=== PATIENT | male | born 1950 | race Caucasian/White ===

== ENCOUNTER 2019-05-22 15:05 | Outpatient (CLI) | payer MEDICARE, MEDICAID, SELFPAY ==
[2019-05-22 18:16] LABS: Alanine Aminotransferase 19 U/L (0-41); Albumin Level 4.9 g/dL (3.5-5.2); Alkaline Phosphatase 80 IU/L (40-130); Anion Gap 19.2 (5-19); Aspartate Amino Transferase 34 U/L (0-40); Blood Urea Nitrogen 21 mg/dL (8-23); Calcium 9.7 mg/dL (8.5-10.5); Carbon Dioxide 27 mmol/L (22-29); Chloride 98 mmol/L (98-107); Globulin 2.1 g/dL (1.3-4.6); Glomerular Filtration Rate 50.4 mL/min (90-130); Glucose 98 mg/dL (65-115); Lactate Dehydrogenase 204 U/L (135-225); Osmolality Calculated 287 mOsm/kg (285-295); Potassium 4.2 mmol/L (3.5-5.1); Sodium 140 mmol/L (136-145); Total Bilirubin 0.5 mg/dL (0.15-1.2)
[2019-05-22 18:24] LABS: Basophils # 0.1 10^3/uL (0.0-0.1); Basophils % 0.6 %; Eosinophils # 0.2 10^3/uL (0.0-0.8); Hematocrit 46.9 % (42.0-52.0); Hemoglobin 15.7 g/dL (11.7-16.6); Lymphocytes # 1.5 10^3/uL (0.8-4.8); Lymphocytes % 18.6 %; Mean Corpuscular HGB Conc 33.5 g/dL (30.0-36.0); Mean Corpuscular Hemoglobin 32.2 pg (28.0-34.0); Mean Corpuscular Volume 96.1 fL (80-94); Mean Platelet Volume 10.5 fL (7.4-10.4); Monocytes # 0.4 10^3/uL (0.2-0.9); Monocytes % 4.8 %; Neutrophils % 73.9 %; Nucleated Red Blood Cells % 0 %; Platelet Count 180 10^3/cmm (130-400); Red Blood Count 4.88 10^6/uL (4.1-5.3); Red Cell Distribution Width 14.5 % (12.1-15.1); White Blood Count 8.2 10^3/uL (4.0-10.0)
[2019-05-28 16:47] LABS: P210 BCR ALB1 Not Detected; Prior Results See Report
== END 2019-05-22 15:06 | disposition home or self-care (01) ==
LOC: ONCMED 05-23 07:23
PROVIDERS: Visit Provider Internal Medicine Medical Oncology
DX: C92.10 Chronic myeloid leukemia, BCR/ABL-positive, not having achieved remission (principal)
CPT/HCPCS: 36415; 80053; 81206; 83615; 85025

== ENCOUNTER 2019-09-28 14:09 | Outpatient (CLI) | payer MEDICARE, MEDICAID, SELFPAY ==
[2019-09-28 14:40] LABS: Basophils % 0.6 %; Eosinophils # 0.2 10^3/uL (0.0-0.8); Eosinophils % 2.7 %; Hematocrit 49.2 % (42.0-52.0); Hemoglobin 16.4 g/dL (11.7-16.6); Lymphocytes # 1.4 10^3/uL (0.8-4.8); Lymphocytes % 20.1 %; Mean Corpuscular HGB Conc 33.3 g/dL (30.0-36.0); Mean Corpuscular Hemoglobin 32.3 pg (28.0-34.0); Mean Corpuscular Volume 96.9 fL (80-94); Mean Platelet Volume 9.6 fL (7.4-10.4); Monocytes # 0.4 10^3/uL (0.2-0.9); Monocytes % 5.4 %; Neutrophils # 4.91 10^3/uL (1.8-7.7); Neutrophils % 71.1 %; Nucleated Red Blood Cells % 0 %; Platelet Count 171 10^3/cmm (130-400); Red Blood Count 5.08 10^6/uL (4.1-5.3); Red Cell Distribution Width 14.2 % (12.1-15.1); White Blood Count 6.9 10^3/uL (4.0-10.0)
[2019-09-28 14:58] LABS: Alanine Aminotransferase 16 U/L (0-41); Albumin Level 4.8 g/dL (3.5-5.2); Alkaline Phosphatase 72 IU/L (40-130); Aspartate Amino Transferase 22 U/L (0-40); Blood Urea Nitrogen 20 mg/dL (8-23); Calcium 8.9 mg/dL (8.5-10.5); Carbon Dioxide 24 mmol/L (22-29); Chloride 100 mmol/L (98-107); Globulin 2.6 g/dL (1.3-4.6); Glomerular Filtration Rate 46.4 mL/min (90-130); Glucose 107 mg/dL (65-115); Osmolality Calculated 279 mOsm/kg (285-295); Sodium 136 mmol/L (136-145); Total Bilirubin 0.6 mg/dL (0.15-1.2); Total Protein 7.4 g/dL (6.6-8.7)
[2019-10-05 13:34] LABS: BCR ABL1 (IS) 0.028 %; P210 BCR ALB1 Detected; Prior Results See Report
== END 2019-09-28 14:10 | disposition home or self-care (01) ==
LOC: ONCMED 14:12
PROVIDERS: Visit Provider Internal Medicine Medical Oncology
DX: C92.12 Chronic myeloid leukemia, BCR/ABL-positive, in relapse (principal)
CPT/HCPCS: 80053; 81206; 85025

== ENCOUNTER 2019-10-02 08:24 | Outpatient (CLI) | payer MEDICARE, MEDICAID, SELFPAY ==
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
== END 2019-10-02 08:25 | disposition home or self-care (01) ==
LOC: ONCMED 08:27
PROVIDERS: Visit Provider Internal Medicine Medical Oncology
DX: C91.12 Chronic lymphocytic leukemia of B-cell type in relapse (principal); M50.30 Other cervical disc degeneration, unspecified cervical region; N40.0 Benign prostatic hyperplasia without lower urinary tract symptoms; J90 Pleural effusion, not elsewhere classified
CPT/HCPCS: 99214

== ENCOUNTER 2020-01-04 10:51 | Outpatient (CLI) | payer MEDICARE, MEDICAID, SELFPAY ==
[2020-01-04 11:54] LABS: Basophils # 0.1 10^3/uL (0.0-0.1); Basophils % 0.6 %; Eosinophils # 0.5 10^3/uL (0.0-0.8); Eosinophils % 5.8 %; Hematocrit 48.1 % (42.0-52.0); Hemoglobin 16.5 g/dL (11.7-16.6); Lymphocytes # 1.7 10^3/uL (0.8-4.8); Lymphocytes % 21.3 %; Mean Corpuscular HGB Conc 34.3 g/dL (30.0-36.0); Mean Corpuscular Hemoglobin 33.3 pg (28.0-34.0); Mean Corpuscular Volume 97.2 fL (80-94); Mean Platelet Volume 9.3 fL (7.4-10.4); Monocytes # 0.4 10^3/uL (0.2-0.9); Monocytes % 4.6 %; Neutrophils # 5.24 10^3/uL (1.8-7.7); Neutrophils % 67.3 %; Nucleated Red Blood Cells % 0 %; Platelet Count 123 10^3/cmm (130-400); Red Blood Count 4.95 10^6/uL (4.1-5.3); Red Cell Distribution Width 13.5 % (12.1-15.1); White Blood Count 7.8 10^3/uL (4.0-10.0)
[2020-01-04 12:22] LABS: Alanine Aminotransferase 17 U/L (0-41); Albumin Level 4.3 g/dL (3.5-5.2); Alkaline Phosphatase 80 IU/L (40-130); Anion Gap 13.3 (5-19); Aspartate Amino Transferase 20 U/L (0-40); Blood Urea Nitrogen 22 mg/dL (8-23); Calcium 9.1 mg/dL (8.5-10.5); Carbon Dioxide 27 mmol/L (22-29); Chloride 103 mmol/L (98-107); Globulin 2.3 g/dL (1.3-4.6); Glomerular Filtration Rate 66.4 mL/min (90-130); Glucose 102 mg/dL (65-115); Lactate Dehydrogenase 160 U/L (135-225); Osmolality Calculated 292 mOsm/kg (285-295); Potassium 4.3 mmol/L (3.5-5.1); Sodium 139 mmol/L (136-145); Total Bilirubin 0.4 mg/dL (0.15-1.2); Total Protein 6.6 g/dL (6.6-8.7)
[2020-01-08 17:08] LABS: BCR ABL1 (IS) 0.048 (0.000); P190 BCR ALB1 NOT DETECTED; P210 BCR ALB1 DETECTED; Prior Results N; Source VEN
== END 2020-01-04 10:52 | disposition home or self-care (01) ==
LOC: ONCMED 10:55
PROVIDERS: Visit Provider Internal Medicine Medical Oncology
DX: C92.12 Chronic myeloid leukemia, BCR/ABL-positive, in relapse (principal)
CPT/HCPCS: 36415; 80053; 81206; 83615; 85025

== ENCOUNTER 2020-03-25 08:34 | Outpatient (CLI) | payer MEDICARE, MEDICAID, SELFPAY ==
[2020-03-25 09:07] LABS: Basophils % 0.7 %; Eosinophils # 0.3 10^3/uL (0.0-0.8); Eosinophils % 5.8 %; Hemoglobin 17.2 g/dL (11.7-16.6); Lymphocytes # 1.2 10^3/uL (0.8-4.8); Lymphocytes % 20.3 %; Mean Corpuscular HGB Conc 33.7 g/dL (30.0-36.0); Mean Corpuscular Hemoglobin 32.3 pg (28.0-34.0); Mean Corpuscular Volume 95.9 fL (80-94); Mean Platelet Volume 9.5 fL (7.4-10.4); Monocytes # 0.3 10^3/uL (0.2-0.9); Monocytes % 5.1 %; Neutrophils # 3.84 10^3/uL (1.8-7.7); Neutrophils % 67.9 %; Nucleated Red Blood Cells % 0 %; Platelet Count 147 10^3/cmm (130-400); Red Blood Count 5.32 10^6/uL (4.1-5.3); White Blood Count 5.7 10^3/uL (4.0-10.0)
[2020-03-25 09:31] LABS: Alanine Aminotransferase 13 U/L (0-41); Albumin Level 4.3 g/dL (3.5-5.2); Alkaline Phosphatase 84 IU/L (40-130); Aspartate Amino Transferase 19 U/L (0-40); Blood Urea Nitrogen 21 mg/dL (8-23); Calcium 9.5 mg/dL (8.5-10.5); Carbon Dioxide 30 mmol/L (22-29); Chloride 102 mmol/L (98-107); Globulin 2.6 g/dL (1.3-4.6); Glucose 117 mg/dL (65-115); Osmolality Calculated 292 mOsm/kg (285-295); Sodium 139 mmol/L (136-145); Total Bilirubin 0.7 mg/dL (0.15-1.2); Total Protein 6.9 g/dL (6.6-8.7)
[2020-03-25 09:39] LABS: Anion Gap 11.3 (5-19); Potassium 4.3 mmol/L (3.5-5.1)
[2020-03-25 09:40] LABS: Lactate Dehydrogenase 168 U/L (135-225)
[2020-03-27 21:38] LABS: BCR ABL1 (IS) 0.022 (0.000); P210 BCR ALB1 DETECTED; Prior Results NG; Source whole blood
== END 2020-03-25 08:35 | disposition home or self-care (01) ==
LOC: ONCMED 08:36
PROVIDERS: Visit Provider Internal Medicine Medical Oncology
DX: C92.12 Chronic myeloid leukemia, BCR/ABL-positive, in relapse (principal)
CPT/HCPCS: 36415; 80053; 81206; 83615; 85025

== ENCOUNTER 2020-10-15 07:48 | Outpatient (CLI) | payer MEDICARE, MEDICAID, SELFPAY ==
[2020-10-15 09:20] LABS: Basophils # 0.1 10^3/uL (0.0-0.1); Basophils % 0.9 %; Eosinophils # 0.7 10^3/uL (0.0-0.8); Eosinophils % 11.8 %; Hemoglobin 15.7 g/dL (11.7-16.6); Lymphocytes # 1.1 10^3/uL (0.8-4.8); Lymphocytes % 20.1 %; Mean Corpuscular HGB Conc 34.1 g/dL (30.0-36.0); Mean Corpuscular Hemoglobin 32.4 pg (28.0-34.0); Mean Platelet Volume 9.9 fL (7.4-10.4); Monocytes # 0.3 10^3/uL (0.2-0.9); Monocytes % 5.3 %; Neutrophils # 3.39 10^3/uL (1.8-7.7); Neutrophils % 61.4 %; Nucleated Red Blood Cells % 0 %; Platelet Count 161 10^3/cmm (130-400); Red Blood Count 4.84 10^6/uL (4.1-5.3); White Blood Count 5.5 10^3/uL (4.0-10.0)
[2020-10-15 09:42] LABS: Alanine Aminotransferase 14 U/L (0-41); Albumin Level 4.4 g/dL (3.5-5.2); Alkaline Phosphatase 92 IU/L (40-130); Anion Gap 16.1 (5-19); Aspartate Amino Transferase 18 U/L (0-40); Blood Urea Nitrogen 17 mg/dL (8-23); Carbon Dioxide 23 mmol/L (22-29); Chloride 106 mmol/L (98-107); Globulin 2.6 g/dL (1.3-4.6); Glomerular Filtration Rate 73.9 mL/min (90-130); Glucose 94 mg/dL (65-115); Lactate Dehydrogenase 173 U/L (135-225); Osmolality Calculated 293 mOsm/kg (285-295); Potassium 4.1 mmol/L (3.5-5.1); Sodium 141 mmol/L (136-145); Total Bilirubin 0.5 mg/dL (0.15-1.2)
[2020-10-17 23:12] LABS: BCR ABL1 (IS) 0.026 (0.000); P210 BCR ALB1 DETECTED; Prior Results NG; Source serum
== END 2020-10-15 07:49 | disposition home or self-care (01) ==
LOC: ONCMED 07:52
PROVIDERS: Visit Provider Internal Medicine Medical Oncology
DX: C92.20 Atypical chronic myeloid leukemia, BCR/ABL-negative, not having achieved remission (principal)
CPT/HCPCS: 36415; 80053; 81206; 83615; 85025

== ENCOUNTER 2020-10-23 05:55 | Outpatient (CLI) | payer MEDICARE, MEDICAID, SELFPAY ==
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
== END 2020-10-23 05:56 | disposition home or self-care (01) ==
PROVIDERS: Visit Provider Internal Medicine Medical Oncology
DX: C92.10 Chronic myeloid leukemia, BCR/ABL-positive, not having achieved remission (principal); R53.83 Other fatigue; R06.02 Shortness of breath; Z79.899 Other long term (current) drug therapy
CPT/HCPCS: 99214

== ENCOUNTER 2020-10-31 14:51 | Outpatient (CLI) | payer MEDICARE, MEDICAID, SELFPAY ==
--- NOTE | 2020-10-31 15:03 | USCV_ITS ---
Edwin Rosas Age: 70 Gender: M : 1950 Exam Date: 10/31/2020 15:16 Ordering Phys: Juan Carlos Frances MD Technologist: Exam Location: [facility] – [place] Indication: SOB BP: 124 / 70 HR: 88 Rhythm: Sinus Technical Quality: Adequate MEASUREMENTS (Male / Female) Normal Values 2D ECHO LVOT Diameter 2.1 cm LV Ejection Fraction MOD 2C 62.5 % LV Ejection Fraction 2C AL 60.8 % LA Diameter 2.8 cm LA Width 3.5 cm LA Height 3.0 cm RA Width 3.9 cm RA Height 2.9 cm DOPPLER AV Peak Velocity 110.0 cm/s LVOT Peak Velocity 93.0 cm/s AV Area Cont Eq vti 2.5 cm squared AV Area Cont Eq pk 2.9 cm squared MV Area PHT 5.0 cm squared Mitral E to A Ratio 0.5 MV E' Velocity 32.0 cm/s Mitral E to MV E' Ratio 8.0 Mitral E to LV E' Lateral Ratio 7.0 Mitral E to LV E' Septal Ratio 9.1 TR Peak Velocity 156.0 cm/s TR Peak Gradient 9.7 mmHg FINDINGS Left Ventricle Normal left ventricular size. LV systolic function is moderately reduced with EF of 35-40%. Moderate global hypokinesis is noted. Grade 1 diastolic dysfunction Right Ventricle The right ventricle is normal in size and function. Right Atrium The right atrium is normal in size. Left Atrium The left atrium is normal in size. Mitral Valve Structurally normal mitral valve without significant stenosis or prolapse. There is trace mitral regurgitation. Aortic Valve Structurally normal aortic valve without significant sclerosis or stenosis. There is no aortic regurgitation. Tricuspid Valve Structurally normal tricuspid valve without significant stenosis or regurgitation. Insufficient TR jet to calculate RVSP Pulmonic Valve Structurally normal pulmonic valve without significant stenosis. There is no pulmonic regurgitation. Pericardium Normal pericardium without effusion. Aorta Normal ascending aorta dimension. CONCLUSIONS Technically very limited quality study because of poor ultrasonic windows. LV systolic function is moderately reduced with EF of 35-40% Grade 1 diastolic dysfunction Trace mitral regurgitation Compared to prior echocardiogram from 11/24/2016, LV systolic function is moderately reduced now Osei Rod MD (Electronically Signed) Final Date: 31 October 2020 19:31 S
--- NOTE | 2020-10-31 15:03 | XR_ITS ---
WS: [id number] Chest 2 views, 10/31/2020 Clinical Data: CML/SHORTNESS OF BREATH Comparison: PA and lateral chest, 11/24/2016. Findings: No nodules or masses are seen. The heart is normal. There are small bilateral pleural effus ions. The pulmonary vascularity is not increased. No pneumonia or pneumothorax is seen. The aortic ar ch and descending thoracic aorta show tortuosity. There has been an orthopedic repair of a left mid c lavicular fracture with plate and screws. There is a healed fracture of the right mid clavicle. XR/XR chest 2V* [id number] Impression: Atherosclerosis and small bilateral pleural effusions.
== END 2020-10-31 14:52 | disposition home or self-care (01) ==
LOC: RAD 14:55
PROVIDERS: Visit Provider Internal Medicine Medical Oncology
DX: C92.12 Chronic myeloid leukemia, BCR/ABL-positive, in relapse (principal); C92.11 Chronic myeloid leukemia, BCR/ABL-positive, in remission; R06.02 Shortness of breath; Z79.899 Other long term (current) drug therapy; I50.9 Heart failure, unspecified; I34.0 Nonrheumatic mitral (valve) insufficiency; I70.90 Unspecified atherosclerosis; J90 Pleural effusion, not elsewhere classified
CPT/HCPCS: 71046; 93306

== ENCOUNTER → 2020-12-12 09:37 | Outpatient (BNVA) | payer MEDICARE, MEDICAID, SELFPAY | PROVIDERS: Referring Provider Internal Medicine Cardiovascular Disease; Visit Provider Internal Medicine Cardiovascular Disease | DX: Z01.818 Encounter for other preprocedural examination (principal); Z20.822 Contact with and (suspected) exposure to COVID-19; I51.9 Heart disease, unspecified | CPT/HCPCS: 80048; 85025; 85610; 87635 ==

== ENCOUNTER 2020-12-18 10:31 | Day surgery (SDC) | payer MEDICARE, MEDICAID, SELFPAY ==
[2020-12-18] VITALS (16 sets, daily range): BP systolic 136–171; BP diastolic 71–89; PULSE 41–66; RESP 16–22; TEMP 36.3; O2SAT 95–98; BMI 26.9
--- NOTE | 2020-12-18 07:30 | XACV_ITS ---
Exam Room: 1 Ht: 173 cm Wt: 80 kg BSA: 1.98 m2 Gender: Male : 1950 Any Known Allergies: Other Exam Priority: Routine Procedure(s): Procedure Description: Diagnostic procedure Procedure Description: Left Heart Catheterization Procedure Description: Left ventriculography Procedure Description: Coronary Angiography Reji NOVA; Diagnostic Cath Status: Elective Diagnostic Findings * No disease noted in the Left Main, Left Anterior Descending, Right, or Circumflex coronary arteries. * Coronary angiography shows right dominance. Conclusions 1. No disease noted in the Left Main, Left Anterior Descending, Right, or Circumflex coronary arteries. 2. All ruff are normal. 3. Normal left ventricular systolic function. Ejection fraction of 55%. Recommendations * Continue current medical management and risk factor modification. LV EDP: 13 mmHg Ventriculography Ejection Fraction: 55.0 % Left Ventriculography Findings: * Normal ejection fraction left ventricle ejection fraction is 55%. Pressures Phase:Rest AO : 143 / 75 ( 99 ) @ 7:59:00 AM 113 / 51 ( 81 ) @ 8:06:00 AM 130 / 67 ( 42 ) @ 8:06:00 AM LV : 144 / -15 / 13 @ 8:05:00 AM 117 / 2 / 1 @ 8:06:00 AM 144 / -9 / 13 @ 8:06:00 AM Valves Phase:DefaultPhase AV : 30.0 @ 9:15:34 AM 30.0 @ 9:15:34 AM AV Mean Gradient: 20.0 @ 9:15:34 AM Clinical Evaluation EBL: 5mL-10mL Procedural Details Procedure Consent Obtained. Pre-Procedure Time Out. Identified patient by full name and date of as verbalized by the patient/guarantor. Does the consent match the physician's order: Yes. Accurate & Complete Informed Consent: Yes. Inpatient/Outpatient History & Physical on Chart: Yes. If H&P is completed, is and addenduem needed: No. Visualize and Verify Site with Patient/Guarantor: N/A. Relevant Radiology Images available: Yes. [facility] Clinical Fraility Score: 3: Managing Well. 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 Chest Pain Symptom Assessment: Atypical Angina. Cardiovascular Instability: No. Correct patient, site and procedure confirmed by cath team. The risks, benefits, and alternatives of sedation and/or procedure were discussed by physician. The patient agrees to continue. Procedure started. PERRLA. Strong, equal hand hair spinner bilaterally. Lungs clear x 5 lobes. IV Site on Arrival: 20 gauge in the left anticubital. IV Fluids: 0.9% NaCl at KVO. 2 mL infused prior to organic lab worker. Pre Procedural Pulses: bilateral radial was 2+. Pre Procedural Pulses: bilateral posterior tibial was 2+. Pre Procedural Pulses: right dorsalis pedis was 1+. Pre Procedural Pulses: left dorsalis pedis was 2+. Oxygen started at 2liters/min via nasal canula. right groin was prepped with chloroprep then draped in the usual sterile fashion. right radial was prepped with chloroprep then draped in the usual sterile fashion. Physician notified. Baseline sample Acquired. HR: 47 BPM. Patient's family in CPRU #4. Equipment: 6F - Radial. Cardiac Cath Pack. ACIST Manifold Kit Model BT 2000. Heparinized Saline (2 units/mL), 1000 mL bag. Physician arrived. Physician scrubbed in. Immediate Pre-Procedure Time Out. Correct Patient: Yes; Correct Procedure: Yes; Correct Site: Yes; Correct Patient Position: Yes; Correct Supplies: Yes; Dried Flammable Prep: Yes; Blood Products Available: N/A. Lidocaine 1% infiltrated to the right radial. Arterial access obtained. A 5 irish TIG catheter in over the exchange wire. Multiple views taken of left coronary artery. Catheter redirected to the RCA. Multiple views taken of right coronary artery. Catheter removed over the exchange wire. A 5 irish Angled Pig catheter in over exchange wire. Medication's Wasted: Heparin = 1000 Units. Medication's Wasted: Lidocaine 1% = 18 mL. Medication's Wasted: Nitro = 49.8 mg. Total IV fluids: 31 mL. EDP Sample taken: LV 144/-16,13; HR: 59 BPM; SpO2: 98%. LV gram performed in [place] @ 10 mL/second for a total of 30 mL. EDP Sample taken: LV 117/2,1; HR: 95 BPM; SpO2: 98%. Pullback taken: LV 144/-10,13; AO 113/51(81); Mean: 20mmHg, Peak to Peak: 30mmHg, SEP: 20sec/min; HR: 66 BPM; SpO2: 98%. Catheter removed over the exchange wire. Physician scrubbed out. A TR Band was successful obtaining hemostatsis at the Right Radial artery insertion site. TR band placed. Hemostasis obtained. Post Procedure: Pulses reassessed and unchanged. PERRLA. Strong, equal hand hair spinner bilaterally. No VTE prophylaxis required. 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 Estimated blood loss: 5mL-10mL. Complications: none. Procedure completed. Patient transferred by wheelchair to 1st floor. Vital chart was stopped. Access Site Site: Right Radial artery Sheath Size: 6 Fr Hemostasis Method: TR Band Hemostasis Success: Successful Procedure Medications Start: 8:45 AM Stop: 8:45 AM Medication: Versed Amount: 1 mg Route: I.V. Start: 8:45 AM Stop: 8:45 AM Medication: Fentanyl Amount: 50 mcg Route: I.V. Start: 8:49 AM Stop: 8:49 AM Medication: Versed Amount: 1 mg Route: I.V. Start: 8:49 AM Stop: 8:49 AM Medication: Fentanyl Amount: 50 mcg Route: I.V. Start: 8:51 AM Stop: 8:51 AM Medication: Nitrogylcerin Amount: 200 mcg Route: I.A. Start: 9:00 AM Stop: 9:00 AM Medication: Heparin Amount: 5000 units Route: I.V. Start: 9:04 AM Stop: 9:04 AM Medication: Versed Amount: 1 mg Route: I.V. Start: 9:04 AM Stop: 9:04 AM Medication: Fentanyl Amount: 50 mcg Route: I.V. I, the attending physician, have reviewed and verified all procedure medications. Yes, all medications given per verbal order History/Risk Factors Hypertension: Yes Peripheral Arterial Disease (PAD): No Myocardial Infarction (DC): No Obesity: No Renal Disease: No Tobacco Use: Former Prior Interventions PCI: No CABG: No Valve Surgery: No Report Signatures Finalized by Ayo Mendoza MD on 12/31/2020 07:10 PM
[2020-12-18] MEDS: diphenhydrAMINE 50 mg Capsule PO (08:16)
--- NOTE | 2020-12-18 08:33 | P.HPUD_ITS ---
Surgery/Procedure H&P Update DATE OF PROCEDURE: December 18, 2020 DATE H&P PERFORMED: 11/25/20 H&P UPDATE INFORMATION: I have reviewed H&P completed within last 30 days, I have examined patient prior to procedure and No changes to prior documentation PREOP DIAGNOSIS: New onset of heart failure, LV dysfunction EF 35% to 40% PLANNED PROCEDURE: Operation Date: 12/18/20 08:30 Proposed Procedures p Cardiac Catheterization(Left) - Ayo Mendoza MD PATIENT REASSESSED PRIOR TO SEDATION, WITH NO CHANGE NOTED: Yes PHYSICAL EXAM: alert, oriented x 3 and clear to auscultation bilaterally AIRWAY EVAL/ANESTHESIA PLAN: ASA II and Risks, benefits & alternatives of sedation and/or procedure discussed ADDITIONAL INFORMATION: Patient has been explained all risk benefit and alternative for the procedure. He understand risk for stroke contrast- induced nephropathy major minor bleed transfusion urgent emergent bypass surgery vascular surgery hematoma bruising. He would like to proceed with it he is a candidate for DAPT.
--- NOTE | 2020-12-18 13:41 | PC.NURSE ---
received from cardiac offset label rewinder at 0930.report was received.pt was alert and oriented x 4 .sb on monitor.denied pain.right wrist with tr band on and inflated.right hand is warm to touch and with brisk capillary refill.palpable radial pulse noted distal to tr band.instructed in activity restrictions s/p radial artery procedure...and instructed to notify staff for any bleeding,pain,numbness..or for any concernns at all.pt verb understanding of instructions.
--- NOTE | 2020-12-18 13:55 | PC.NURSE ---
tr band has been slowly deflated over past several hours and finely removed at 1230.site dressed with 2x2 gauze and secured with biocclusive drsg..instructed to notify staff for any bleeding,numbness,pain...or for any concerns at all.pt verb understanding of instructions.
--- NOTE | 2020-12-18 14:00 | PC.NURSE ---
discharge instructions given and explained.pt and daughter verb understanding of instructions.discharged at 1310 via w/c to exit.daughter ti drive pt home
== END 2020-12-18 13:10 | disposition home or self-care (01) ==
LOC: CSU 10:43 → OPOB 12-27 10:30 → CSU 12-27 10:30
PROVIDERS: Visit Provider Internal Medicine Cardiovascular Disease
DX: I50.9 Heart failure, unspecified (principal); I10 Essential (primary) hypertension; Z87.891 Personal history of nicotine dependence
CPT/HCPCS: 36415; 93452; C1769; C1887; C1894; G0378; J1644; J2250; J3010; J3490; J7030; Q0163; Q9967

== ENCOUNTER → 2020-12-25 11:44 | Outpatient (BNVA) | payer MEDICARE, MEDICAID, SELFPAY | PROVIDERS: Visit Provider Nurse Practitioner Family | DX: I42.8 Other cardiomyopathies (principal) | CPT/HCPCS: 80048 ==

== ENCOUNTER 2021-05-06 11:36 | Outpatient (CLI) | payer MEDICARE, MEDICAID, SELFPAY ==
[2021-05-06 12:46] LABS: Basophils % 0.7 %; Eosinophils # 0.5 10^3/uL (0.0-0.8); Eosinophils % 7.9 %; Hematocrit 46.7 % (42.0-52.0); Hemoglobin 15.7 g/dL (11.7-16.6); Lymphocytes # 1.1 10^3/uL (0.8-4.8); Lymphocytes % 18.3 %; Mean Corpuscular HGB Conc 33.6 g/dL (30.0-36.0); Mean Corpuscular Hemoglobin 32.4 pg (28.0-34.0); Mean Corpuscular Volume 96.3 fl (80-94); Mean Platelet Volume 9.1 fL (7.4-10.4); Monocytes # 0.3 10^3/uL (0.2-0.9); Monocytes % 4.8 %; Neutrophils # 3.94 10^3/uL (1.8-7.7); Neutrophils % 68.1 %; Nucleated Red Blood Cells % 0 %; Platelet Count 180 10^3/cmm (130-400); Red Blood Count 4.85 10^6/uL (4.1-5.3); Red Cell Distribution Width 13.3 % (12.1-15.1); White Blood Count 5.8 10^3/uL (4.0-10.0)
[2021-05-06 13:13] LABS: Alanine Aminotransferase 13 U/L (0-41); Albumin Level 4.4 g/dL (3.5-5.2); Alkaline Phosphatase 71 IU/L (40-130); Anion Gap 14.5 (5-19); Aspartate Amino Transferase 21 U/L (0-40); Blood Urea Nitrogen 17 mg/dL (8-23); Calcium 9.3 mg/dL (8.5-10.5); Carbon Dioxide 26 mmol/L (22-29); Chloride 99 mmol/L (98-107); Globulin 2.8 g/dL (1.3-4.6); Glomerular Filtration Rate 59.9 mL/min (90-130); Glucose 97 mg/dL (65-115); Osmolality Calculated 281 mOsm/kg (285-295); Potassium 4.5 mmol/L (3.5-5.1); Sodium 135 mmol/L (136-145); Total Bilirubin 0.6 mg/dL (0.15-1.2); Total Protein 7.2 g/dL (6.6-8.7)
[2021-05-06 13:23] LABS: Lactate Dehydrogenase 152 U/L (135-225)
[2021-05-06 17:19] LABS: NT Pro B Type Natriuretic Pept 163 pg/mL (0-125)
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
[2021-05-07 09:19] LABS: Thyroid Stimulating Hormone 6.82 uIU/mL (0.27-4.20)
[2021-05-12 20:43] LABS: P210 BCR ALB1 DETECTED; Prior Results NG; Source serum
== END 2021-05-06 11:37 | disposition home or self-care (01) ==
PROVIDERS: PCP Internal Medicine Medical Oncology; Visit Provider Internal Medicine Medical Oncology
DX: C92.10 Chronic myeloid leukemia, BCR/ABL-positive, not having achieved remission (principal); J90 Pleural effusion, not elsewhere classified; R53.83 Other fatigue; R06.02 Shortness of breath; I95.1 Orthostatic hypotension; I10 Essential (primary) hypertension; I42.8 Other cardiomyopathies; I51.9 Heart disease, unspecified; M47.892 Other spondylosis, cervical region; N40.0 Benign prostatic hyperplasia without lower urinary tract symptoms; Z79.899 Other long term (current) drug therapy; Z87.891 Personal history of nicotine dependence
CPT/HCPCS: 80053; 81206; 83615; 83880; 84443; 85025; 99214

== ENCOUNTER 2021-05-22 14:54 | Outpatient (CLI) | payer MEDICARE, MEDICAID, SELFPAY ==
--- NOTE | 2021-05-22 15:00 | USCV_ITS ---
Edwin Rosas Age: 70 Gender: M : 1950 Exam Date: 05/22/2021 15:08 Ordering Phys: Juan Carlos Frances MD Technologist: LUTHER Exam Location: [facility] [place] Indication: Follw up-high risk med BP: 108 / 60 HR: 85 Rhythm: Sinus Technical Quality: Technically difficult study MEASUREMENTS (Male / Female) Normal Values 2D ECHO LV Ejection Fraction MOD 2C 51.9 % LV Ejection Fraction 2C AL 51.7 % LA Width 2.8 cm LA Height 2.4 cm RA Width 2.7 cm RA Height 3.3 cm DOPPLER AV Peak Velocity 79.0 cm/s LVOT Peak Velocity 60.0 cm/s MV E' Velocity 5.0 cm/s TR Peak Velocity 248.0 cm/s TR Peak Gradient 24.6 mmHg Right Atrial Pressure 8.0 mmHg Pulmonary Artery Systolic Pressu 32.6 mmHg FINDINGS Left Ventricle Normal left ventricular cavity size. Moderately decreased left ventricular systolic function. Left ventricular ejection fraction is estimated at 40 %. Moderate global hypokinesis. Abnormal relaxation filling pattern. Right Ventricle Normal right ventricular size and systolic function. Right Atrium Normal right atrial size. Left Atrium Left atrium not well visualized. Mitral Valve Structurally normal mitral valve. Aortic Valve Aortic valve not well visualized. No aortic valve stenosis. Tricuspid Valve Structurally normal tricuspid valve. Trace tricuspid valve regurgitation. Pulmonic Valve Pulmonic valve not well visualized. Pericardium No pericardial effusion. Aorta Aorta not well visualized. CONCLUSIONS 1. This is a technically difficult study with no parasternal windows. 2. Normal left ventricular cavity size. Moderately decreased left ventricular systolic function. Moderate global hypokinesis. Left ventricular ejection fraction is estimated at 40 %. Abnormal relaxation filling pattern. 3. When compared to previous echocardiogram dated 10/31/2020, there may not have been any significant change. 4. Recommend repeat studies in future should be done with echo contrast. Tiffany Zepeda MD (Electronically Signed) Final Date: 26 May 2021 15:17 S
== END 2021-05-22 14:55 | disposition home or self-care (01) ==
PROVIDERS: PCP Internal Medicine Medical Oncology; Visit Provider Internal Medicine Medical Oncology
DX: Z79.899 Other long term (current) drug therapy (principal)
CPT/HCPCS: 93306

== ENCOUNTER 2021-06-16 11:04 | Outpatient (CLI) | payer MEDICARE, MEDICAID, SELFPAY ==
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
== END 2021-06-16 11:05 | disposition home or self-care (01) ==
PROVIDERS: PCP Internal Medicine Medical Oncology; Visit Provider Internal Medicine Medical Oncology
DX: C92.10 Chronic myeloid leukemia, BCR/ABL-positive, not having achieved remission (principal); I51.89 Other ill-defined heart diseases
CPT/HCPCS: 99214

== ENCOUNTER → 2021-07-09 13:58 | Outpatient (BNVA) | payer MEDICARE, MEDICAID, SELFPAY | PROVIDERS: PCP Internal Medicine Medical Oncology; Visit Provider Internal Medicine Cardiovascular Disease | DX: I42.8 Other cardiomyopathies (principal); I10 Essential (primary) hypertension; Z87.891 Personal history of nicotine dependence | CPT/HCPCS: 99214 ==

== ENCOUNTER 2021-07-14 13:04 | Oncology outpatient (recurring) (ONCR) | payer MEDICARE, MEDICAID, SELFPAY | END 2021-07-22 23:59 | disposition home or self-care (01) | PROVIDERS: PCP Internal Medicine Medical Oncology; Visit Provider Internal Medicine Medical Oncology | DX: C92.11 Chronic myeloid leukemia, BCR/ABL-positive, in remission (principal); R60.9 Edema, unspecified; R53.83 Other fatigue; R06.02 Shortness of breath; I95.1 Orthostatic hypotension; Z79.899 Other long term (current) drug therapy | CPT/HCPCS: 36415; 80048; 81206; 83615; 83735; 83880; 85007; 85025; 99214; 99999 ==

== ENCOUNTER 2021-08-28 14:28 | Oncology outpatient (recurring) (ONCR) | payer MEDICARE, MEDICAID, SELFPAY ==
[2021-08-28 13:24] LABS: Basophils # 0.1 10^3/uL (0.0-0.1); Basophils % 0.8 %; Eosinophils # 0.3 10^3/uL (0.0-0.8); Eosinophils % 3.2 %; Hematocrit 43.7 % (42.0-52.0); Hemoglobin 15.1 g/dL (11.7-16.6); Lymphocytes # 2.2 10^3/uL (0.8-4.8); Lymphocytes % 20.6 %; Mean Corpuscular HGB Conc 34.6 g/dL (30.0-36.0); Mean Corpuscular Hemoglobin 30.9 pg (28.0-34.0); Mean Corpuscular Volume 89.5 fl (80-94); Mean Platelet Volume 9.9 fL (7.4-10.4); Monocytes # 0.4 10^3/uL (0.2-0.9); Monocytes % 3.8 %; Neutrophils # 7.58 10^3/uL (1.8-7.7); Neutrophils % 71.2 %; Nucleated Red Blood Cells % 0 %; Platelet Count 133 10^3/cmm (130-400); Red Blood Count 4.88 10^6/uL (4.1-5.3); White Blood Count 10.7 10^3/uL (4.0-10.0)
[2021-08-28 13:41] LABS: Alanine Aminotransferase 13 U/L (0-41); Albumin Level 4.4 g/dL (3.5-5.2); Alkaline Phosphatase 79 IU/L (40-130); Anion Gap 17.4 (5-19); Aspartate Amino Transferase 21 U/L (0-40); Blood Urea Nitrogen 28 mg/dL (8-23); Calcium 8.8 mg/dL (8.5-10.5); Carbon Dioxide 24 mmol/L (22-29); Chloride 99 mmol/L (98-107); Globulin 2.3 g/dL (1.3-4.6); Glucose 91 mg/dL (65-115); Osmolality Calculated 287 mOsm/kg (285-295); Potassium 4.4 mmol/L (3.5-5.1); Sodium 136 mmol/L (136-145); Total Bilirubin 0.6 mg/dL (0.15-1.2); Total Protein 6.7 g/dL (6.6-8.7)
== END 2021-09-21 23:59 | disposition home or self-care (01) ==
PROVIDERS: PCP Internal Medicine Medical Oncology; Visit Provider Internal Medicine Medical Oncology
DX: C92.11 Chronic myeloid leukemia, BCR/ABL-positive, in remission (principal); Z79.899 Other long term (current) drug therapy; I50.9 Heart failure, unspecified; I95.1 Orthostatic hypotension
CPT/HCPCS: 80053; 85025; 99214

== ENCOUNTER 2021-10-09 12:57 | Oncology outpatient (recurring) (ONCR) | payer MEDICARE, MEDICAID, SELFPAY ==
[2021-10-09 12:23] LABS: Basophils % 0.6 %; Eosinophils # 0.1 10^3/uL (0.0-0.8); Eosinophils % 1.3 %; Hematocrit 45.2 % (42.0-52.0); Lymphocytes # 1.4 10^3/uL (0.8-4.8); Mean Corpuscular HGB Conc 33.2 g/dL (30.0-36.0); Mean Corpuscular Hemoglobin 30.8 pg (28.0-34.0); Mean Corpuscular Volume 92.8 fl (80-94); Mean Platelet Volume 9.4 fL (7.4-10.4); Monocytes # 0.3 10^3/uL (0.2-0.9); Monocytes % 4.1 %; Neutrophils # 5.28 10^3/uL (1.8-7.7); Neutrophils % 73.7 %; Nucleated Red Blood Cells % 0 %; Platelet Count 188 10^3/cmm (130-400); Red Blood Count 4.87 10^6/uL (4.1-5.3); Red Cell Distribution Width 14.6 % (12.1-15.1); White Blood Count 7.2 10^3/uL (4.0-10.0)
[2021-10-09 12:29] LABS: Alanine Aminotransferase 14 U/L (0-41); Albumin Level 4.8 g/dL (3.5-5.2); Alkaline Phosphatase 86 U/L (40-130); Aspartate Amino Transferase 21 U/L (0-40); Blood Urea Nitrogen 18 mg/dL (8-23); Calcium 9.3 mg/dL (8.5-10.5); Carbon Dioxide 25 mmol/L (22-29); Chloride 99 mmol/L (98-107); Glucose 112 mg/dL (65-115); Lactate Dehydrogenase 169 U/L (135-225); Osmolality Calculated 287 mOsm/kg (285-295); Sodium 137 mmol/L (136-145); Total Bilirubin 0.7 mg/dL (0.15-1.2); Total Protein 6.8 g/dL (6.6-8.7)
[2021-10-12 22:38] LABS: BCR ABL1 (IS) 11.531 (0.000); P210 BCR ALB1 DETECTED; Prior Results NG; Source Peripheral blood
== END 2021-10-22 23:59 | disposition home or self-care (01) ==
PROVIDERS: PCP Internal Medicine Medical Oncology; Visit Provider Internal Medicine Medical Oncology
DX: Z79.899 Other long term (current) drug therapy; I50.9 Heart failure, unspecified; I95.1 Orthostatic hypotension; C92.12 Chronic myeloid leukemia, BCR/ABL-positive, in relapse; C92.11 Chronic myeloid leukemia, BCR/ABL-positive, in remission
CPT/HCPCS: 36415; 80053; 81206; 83615; 85025; 99214

== ENCOUNTER → 2021-12-30 15:36 | Outpatient (BNVA) | payer MEDICARE, MEDICAID, SELFPAY | PROVIDERS: PCP Internal Medicine Medical Oncology; Visit Provider Internal Medicine Cardiovascular Disease | DX: I42.8 Other cardiomyopathies (principal); Z87.891 Personal history of nicotine dependence; I11.0 Hypertensive heart disease with heart failure; I50.9 Heart failure, unspecified | CPT/HCPCS: 99214 ==

== ENCOUNTER 2022-01-22 13:31 | Oncology outpatient (recurring) (ONCR) | payer MEDICARE, MEDICAID, SELFPAY ==
[2022-01-22 12:15] LABS: Basophils # 0.1 10^3/uL (0.0-0.1); Basophils % 0.6 %; Eosinophils # 0.2 10^3/uL (0.0-0.8); Eosinophils % 1.9 %; Hematocrit 45.1 % (42.0-52.0); Hemoglobin 15.3 g/dL (11.7-16.6); Lymphocytes # 1.6 10^3/uL (0.8-4.8); Lymphocytes % 20.4 %; Mean Corpuscular HGB Conc 33.9 g/dL (30.0-36.0); Mean Corpuscular Hemoglobin 31.9 pg (28.0-34.0); Mean Corpuscular Volume 94.2 fl (80-94); Mean Platelet Volume 8.9 fL (7.4-10.4); Monocytes # 0.3 10^3/uL (0.2-0.9); Monocytes % 3.7 %; Neutrophils # 5.69 10^3/uL (1.8-7.7); Neutrophils % 73.1 %; Nucleated Red Blood Cells % 0 %; Platelet Count 229 10^3/cmm (130-400); Red Blood Count 4.79 10^6/uL (4.1-5.3); Red Cell Distribution Width 13.6 % (12.1-15.1); White Blood Count 7.8 10^3/uL (4.0-10.0)
[2022-01-22 12:34] LABS: Alanine Aminotransferase 15 U/L (0-41); Albumin Level 4.5 g/dL (3.5-5.2); Alkaline Phosphatase 78 U/L (40-130); Anion Gap 14.2 (5-19); Aspartate Amino Transferase 23 U/L (0-40); Blood Urea Nitrogen 17 mg/dL (8-23); Calcium 9.2 mg/dL (8.5-10.5); Carbon Dioxide 26 mmol/L (22-29); Chloride 100 mmol/L (98-107); Globulin 2.7 g/dL (1.3-4.6); Glucose 138 mg/dL (65-115); Lactate Dehydrogenase 172 U/L (135-225); Osmolality Calculated 286 mOsm/kg (285-295); Potassium 4.2 mmol/L (3.5-5.1); Sodium 136 mmol/L (136-145); Total Bilirubin 0.4 mg/dL (0.15-1.2); Total Protein 7.2 g/dL (6.6-8.7)
[2022-01-27 20:20] LABS: P210 BCR ALB1 DETECTED; Prior Results NG
== END 2022-02-21 23:59 | disposition home or self-care (01) ==
PROVIDERS: PCP Internal Medicine Medical Oncology; Visit Provider Internal Medicine Medical Oncology
DX: C92.12 Chronic myeloid leukemia, BCR/ABL-positive, in relapse (principal); R53.0 Neoplastic (malignant) related fatigue; I95.1 Orthostatic hypotension; I50.9 Heart failure, unspecified; Z79.899 Other long term (current) drug therapy; Z87.891 Personal history of nicotine dependence
CPT/HCPCS: 36415; 80053; 81206; 83615; 85025; 99214

== ENCOUNTER 2022-03-30 13:46 | Outpatient (CLI) | payer MEDICARE, MEDICAID, SELFPAY ==
[2022-03-30 14:27] LABS: Anion Gap 13.6 (5-19); Blood Urea Nitrogen 17 mg/dL (8-23); Calcium 8.9 mg/dL (8.5-10.5); Carbon Dioxide 26 mmol/L (22-29); Chloride 97 mmol/L (98-107); Glucose 116 mg/dL (65-115); NT Pro B Type Natriuretic Pept 94 pg/mL (0-125); Osmolality Calculated 277 mOsm/kg (285-295); Potassium 4.6 mmol/L (3.5-5.1); Sodium 132 mmol/L (136-145)
== END 2022-03-30 13:47 | disposition home or self-care (01) ==
LOC: LAB 13:49
PROVIDERS: PCP Internal Medicine Medical Oncology; Visit Provider Internal Medicine Cardiovascular Disease
DX: I11.0 Hypertensive heart disease with heart failure (principal); I50.9 Heart failure, unspecified; I42.8 Other cardiomyopathies
CPT/HCPCS: 36415; 80048; 83880

== ENCOUNTER 2022-06-04 07:06 | Oncology outpatient (recurring) (ONCR) | payer MEDICARE, MEDICAID, SELFPAY ==
[2022-06-04 07:34] LABS: Basophils # 0.1 10^3/uL (0.0-0.1); Basophils % 0.9 %; Eosinophils # 0.4 10^3/uL (0.0-0.8); Eosinophils % 6.6 %; Hematocrit 46.2 % (42.0-52.0); Hemoglobin 15.5 g/dL (11.7-16.6); Lymphocytes # 1.7 10^3/uL (0.8-4.8); Lymphocytes % 25.6 %; Mean Corpuscular HGB Conc 33.5 g/dL (30.0-36.0); Mean Corpuscular Hemoglobin 31.2 pg (28.0-34.0); Mean Platelet Volume 9.1 fL (7.4-10.4); Monocytes # 0.3 10^3/uL (0.2-0.9); Neutrophils # 4.07 10^3/uL (1.8-7.7); Neutrophils % 62.7 %; Nucleated Red Blood Cells % 0 %; Platelet Count 165 10^3/cmm (130-400); Red Blood Count 4.97 10^6/uL (4.1-5.3); Red Cell Distribution Width 13.6 % (12.1-15.1); White Blood Count 6.5 10^3/uL (4.0-10.0)
[2022-06-04 07:52] LABS: Alanine Aminotransferase 14 U/L (0-41); Albumin Level 4.3 g/dL (3.5-5.2); Alkaline Phosphatase 71 U/L (40-130); Anion Gap 15.2 (5-19); Aspartate Amino Transferase 23 U/L (0-40); Blood Urea Nitrogen 19 mg/dL (8-23); Calcium 8.7 mg/dL (8.5-10.5); Carbon Dioxide 25 mmol/L (22-29); Chloride 99 mmol/L (98-107); Glucose 103 mg/dL (65-115); Osmolality Calculated 283 mOsm/kg (285-295); Potassium 4.2 mmol/L (3.5-5.1); Sodium 135 mmol/L (136-145); Total Bilirubin 0.6 mg/dL (0.15-1.2); Total Protein 7.3 g/dL (6.6-8.7)
[2022-06-09 17:00] LABS: BCR ABL1 (IS) 0.153 (0.000); P210 BCR ALB1 DETECTED; Prior Results PERIPHERAL BLOOD; Source Peripheral blood
== END 2022-06-21 23:59 | disposition home or self-care (01) ==
PROVIDERS: PCP Internal Medicine Medical Oncology; Visit Provider Internal Medicine Medical Oncology
DX: C92.12 Chronic myeloid leukemia, BCR/ABL-positive, in relapse (principal); Z79.899 Other long term (current) drug therapy; Z87.891 Personal history of nicotine dependence
CPT/HCPCS: 36415; 80053; 81206; 85025; 99214

== ENCOUNTER → 2022-06-30 15:18 | Outpatient (BNVA) | payer MEDICARE, MEDICAID, SELFPAY | PROVIDERS: PCP Internal Medicine Medical Oncology; Visit Provider Nurse Practitioner Family | DX: I13.0 Hypertensive heart and chronic kidney disease with heart failure and stage 1 through stage 4 chronic kidney disease, or unspecified chronic kidney disease (principal); N18.9 Chronic kidney disease, unspecified; I50.20 Unspecified systolic (congestive) heart failure; Z87.891 Personal history of nicotine dependence | CPT/HCPCS: 99214 ==

== ENCOUNTER 2022-09-11 09:30 | Oncology outpatient (recurring) (ONCR) | payer MEDICARE, MEDICAID, SELFPAY ==
[2022-09-11 10:23] VITALS: BP 124/75; PULSE 75; RESP 18; TEMP 36.4; O2SAT 96
[2022-09-11 10:45] LABS: Basophils # 0.1 10^3/uL (0.0-0.1); Basophils % 0.7 %; Eosinophils # 0.2 10^3/uL (0.0-0.8); Eosinophils % 2.4 %; Hematocrit 48.1 % (42.0-52.0); Hemoglobin 16.5 g/dL (11.7-16.6); Lymphocytes # 1.1 10^3/uL (0.8-4.8); Lymphocytes % 13.3 %; Mean Corpuscular HGB Conc 34.3 g/dL (30.0-36.0); Mean Corpuscular Hemoglobin 31.2 pg (28.0-34.0); Mean Corpuscular Volume 90.9 fl (80-94); Mean Platelet Volume 8.9 fL (7.4-10.4); Monocytes # 0.3 10^3/uL (0.2-0.9); Neutrophils # 6.57 10^3/uL (1.8-7.7); Neutrophils % 79.1 %; Nucleated Red Blood Cells % 0 %; Platelet Count 145 10^3/cmm (130-400); Red Blood Count 5.29 10^6/uL (4.1-5.3); Red Cell Distribution Width 14.6 % (12.1-15.1); White Blood Count 8.3 10^3/uL (4.0-10.0)
[2022-09-11 11:05] LABS: Alanine Aminotransferase 11 U/L (0-41); Albumin Level 4.3 g/dL (3.5-5.2); Alkaline Phosphatase 77 U/L (40-130); Blood Urea Nitrogen 21 mg/dL (8-23); Calcium 8.4 mg/dL (8.5-10.5); Carbon Dioxide 22 mmol/L (22-29); Chloride 101 mmol/L (98-107); Globulin 2.3 g/dL (1.3-4.6); Glucose 98 mg/dL (65-115); Osmolality Calculated 281 mOsm/kg (285-295); Sodium 134 mmol/L (136-145); Total Bilirubin 0.4 mg/dL (0.15-1.2); Total Protein 6.6 g/dL (6.6-8.7)
[2022-09-11 11:06] LABS: Anion Gap 15.7 (5-19); Aspartate Amino Transferase 21 U/L (0-40); Lactate Dehydrogenase 214 U/L (135-225); Potassium 4.7 mmol/L (3.5-5.1)
[2022-09-15 22:09] LABS: BCR ABL1 (IS) 0.179 (0.000); P210 BCR ALB1 DETECTED; P210 BCR ALB1 Yes Test Yes; Source Peripheral blood
== END 2022-09-21 23:59 | disposition home or self-care (01) ==
PROVIDERS: PCP Internal Medicine Medical Oncology; Visit Provider Internal Medicine Medical Oncology
DX: C92.12 Chronic myeloid leukemia, BCR/ABL-positive, in relapse (principal)
CPT/HCPCS: 36415; 80053; 81206; 83615; 85025; 99214

== ENCOUNTER 2022-09-24 10:55 | Outpatient (CLI) | payer MEDICARE, MEDICAID, SELFPAY ==
--- NOTE | 2022-09-24 11:15 | USCV_ITS ---
Edwin Rosas Age: 72 Gender: M : 1950 Exam Date: 09/24/2022 11:07 Ordering Phys: Marimar Contreras Technologist: Renea Christie Exam Location: [facility] [place] Indication: high risk medication- check LVEF BP: 128 / 88 HR: 96 Rhythm: Sinus Technical Quality: Adequate MEASUREMENTS (Male / Female) Normal Values 2D ECHO LV Diastolic Diameter PLAX 3.3 cm 4.2 - 5.9 / 3.9 - 5.3 cm LV Systolic Diameter PLAX 2.5 cm IVS Diastolic Thickness 1.1 cm 0.6 - 1.0 / 0.6 - 0.9 cm IVS Systolic Thickness 1.1 cm LVPW Diastolic Thickness 0.8 cm 0.6 - 1.0 / 0.6 - 0.9 cm LVPW Systolic Thickness 1.2 cm LVOT Diameter 2.0 cm LV Ejection Fraction 2D Teich 47.9 % LV Ejection Fraction MOD 2C 62.5 % LV Ejection Fraction 2C AL 62.5 % LA Diameter 1.7 cm LA Width 2.5 cm LA Height 3.2 cm RA Width 2.8 cm RA Height 2.9 cm Aorta at Sinotubular Diameter 1.8 cm IVC Diameter 1.1 cm M-MODE MV E Point Septal Separation 0.4 cm FINDINGS Left Ventricle Normal left ventricular cavity size. Mildly decreased left ventricular systolic function. Left ventricular ejection fraction is estimated at 45-50 %. Mild global hypokinesis. Right Ventricle Normal right ventricular size and systolic function. Right Atrium Normal right atrial size. Left Atrium Left atrium not well visualized. Mitral Valve Structurally normal mitral valve. Aortic Valve Aortic valve not well visualized. Tricuspid Valve Structurally normal tricuspid valve. Pulmonic Valve Pulmonic valve not well visualized. Pericardium No pericardial effusion. Pleural effusion. Aorta Aorta not well visualized. IVC Normal IVC dimension with >50% respiratory change of the inferior vena cava. CONCLUSIONS 1. Technically difficult study with no parasternal windows. 2. Normal left ventricular cavity size. Mildly decreased left ventricular systolic function. Left ventricular ejection fraction is estimated at 45-50 %. Mild global hypokinesis. 3. When compared to study dated 05/22/2021, left ventricular systolic function seems to have increased somewhat. Tiffany Zepeda MD (Electronically Signed) Final Date: 24 September 2022 15:14 S
== END 2022-09-24 10:56 | disposition home or self-care (01) ==
LOC: RAD 10:56
PROVIDERS: PCP Internal Medicine Medical Oncology; Visit Provider Nurse Practitioner Family
DX: I42.8 Other cardiomyopathies (principal); I50.9 Heart failure, unspecified
CPT/HCPCS: 93308; 99214

== ENCOUNTER 2022-10-06 09:29 | Oncology outpatient (recurring) (ONCR) | payer MEDICARE, MEDICAID, SELFPAY ==
[2022-10-06 10:18] LABS: Basophils # 0.1 10^3/uL (0.0-0.1); Basophils % 0.6 %; Eosinophils # 0.1 10^3/uL (0.0-0.8); Eosinophils % 1.4 %; Hematocrit 48.4 % (42.0-52.0); Hemoglobin 16.6 g/dL (11.7-16.6); Lymphocytes # 1.4 10^3/uL (0.8-4.8); Lymphocytes % 15.1 %; Mean Corpuscular HGB Conc 34.3 g/dL (30.0-36.0); Mean Corpuscular Volume 90.5 fl (80-94); Mean Platelet Volume 8.8 fL (7.4-10.4); Monocytes # 0.5 10^3/uL (0.2-0.9); Monocytes % 5.1 %; Neutrophils # 6.99 10^3/uL (1.8-7.7); Neutrophils % 77.6 %; Nucleated Red Blood Cells % 0 %; Platelet Count 148 10^3/cmm (130-400); Red Blood Count 5.35 10^6/uL (4.1-5.3); Red Cell Distribution Width 13.9 % (12.1-15.1)
[2022-10-06 10:47] LABS: Alanine Aminotransferase 12 U/L (0-41); Albumin Level 4.5 g/dL (3.5-5.2); Alkaline Phosphatase 79 U/L (40-130); Aspartate Amino Transferase 21 U/L (0-40); Blood Urea Nitrogen 22 mg/dL (8-23); Calcium 9.1 mg/dL (8.5-10.5); Carbon Dioxide 27 mmol/L (22-29); Chloride 97 mmol/L (98-107); Globulin 2.6 g/dL (1.3-4.6); Glucose 102 mg/dL (65-115); Osmolality Calculated 286 mOsm/kg (285-295); Sodium 136 mmol/L (136-145); Total Bilirubin 0.8 mg/dL (0.15-1.2); Total Protein 7.1 g/dL (6.6-8.7)
[2022-10-06 10:50] LABS: Anion Gap 16.2 (5-19); Lactate Dehydrogenase 189 U/L (135-225); Potassium 4.2 mmol/L (3.5-5.1)
[2022-10-07 13:31] LABS: Thyroid Stimulating Hormone 11.39 uIU/mL (0.27-4.20)
[2022-10-13 22:25] LABS: BCR ABL1 (IS) 0.123 (0.000); P210 BCR ALB1 DETECTED; P210 BCR ALB1 Yes Test Yes; Prior Results BLOOD; Source blood
== END 2022-10-22 23:59 | disposition home or self-care (01) ==
PROVIDERS: Nurse Practitioner Family; PCP Internal Medicine Medical Oncology; Visit Provider Internal Medicine Medical Oncology
DX: C92.12 Chronic myeloid leukemia, BCR/ABL-positive, in relapse (principal); I95.1 Orthostatic hypotension; I50.9 Heart failure, unspecified; R53.0 Neoplastic (malignant) related fatigue; Z79.899 Other long term (current) drug therapy; Z87.891 Personal history of nicotine dependence
CPT/HCPCS: 36415; 80053; 81206; 83615; 84443; 85025; 99214

== ENCOUNTER 2022-10-07 11:09 | Outpatient (CLI) | payer MEDICARE, MEDICAID, SELFPAY ==
--- NOTE | 2022-10-07 10:00 | CT_ITS ---
WS: [id number] CT chest w con* [id number] HISTORY: pleural effusion noted on echo, cough TECHNIQUE: Axial imaging performed through the thorax. Coronal and sagittal reformats are submitted. All CT scans at [facility] use at least one of these dose optimization techniques: automated exposure control; mA and/or kV adjustment per patient size (includes targeted exams where dose is mat ched to clinical indication); or iterative reconstruction. CONTRAST: Omnipaque 350; 100 mL IV. DLP: 222.22 mGy.cm COMPARISON: 10/15/2016 Lungs and central airway: Compressive atelectasis in the lower lung farias due to moderate bilateral layering pleural effusions. There are a few scattered pulmonary granulomata. No mass or pneumonia. Pleura: Moderate-sized bilateral pleural effusions. Heart and pericardium: Normal size heart. Small amount of pericardial fluid versus pericardial thicke raman. Mediastinum and elsa: No adenopathy. Vessels: Normal size aortic and pulmonary artery. No coronary artery calcifications. Chest wall and lower neck: No soft tissue masses. Upper abdomen: Visualized liver is normal. Normal gallbladder is visualized. No adrenal mass. Mild co rtical thinning superior pole left kidney. Osseous structures: Plate and screw fixation left clavicle fracture. Additional fracture with healing involving the right clavicle. IMPRESSION: 1. Moderate layering bilateral pleural effusions. Simple effusions. Similar size effusions were also noted in 2017. 2. No pulmonary mass or pneumonia. 3. Very small pericardial effusion versus pericardial thickening.
[2022-10-07] MEDS: iohexol 350 mg/mL 500 mL Btl (per mL) IV (11:29)
== END 2022-10-07 11:10 | disposition home or self-care (01) ==
PROVIDERS: PCP Internal Medicine Medical Oncology; Visit Provider Nurse Practitioner Family
DX: J90 Pleural effusion, not elsewhere classified (principal); I31.39 Other pericardial effusion (noninflammatory)
CPT/HCPCS: 71260; Q9967

== ENCOUNTER 2022-11-12 13:34 | Emergency (ER) | payer MEDICARE, MEDICAID, SELFPAY ==
[2022-11-12 13:36] VITALS: BP 131/71; PULSE 89; RESP 16; TEMP 36.8; O2SAT 95
--- NOTE | 2022-11-12 13:43 | W.ED.WEAKNES ---
HPI - Weakness General: Chief complaint: Weakness Stated complaint: phys sent, stroke symptoms Time Seen by Provider: 11/12/22 13:39 History of Present Illness: This 72-year-old male with a history of CML was brought in by daughter for evaluation of generalized weakness that started about 6 weeks ago. Daughter notes that the weakness affects the right side more than the left and its off and on. He had seen his primary care provider at the time and they thought his weakness was due to his thyroid function. They started him on medication for that but over the last week or so, daughter thought the problem was more than that. Patient reports that he has been falling more frequently lately and when he falls, he is unable to get up. So daughter scheduled an appointment for patient to see his primary care provider. His PCP saw him and directed him to come to the ER for evaluation. Patient has no fever, nausea, vomiting or new pain. He tells me that his weakness seems to have shown some improvement over the last week. He is alert, oriented and clinically stable. Associated symptoms: Denies chest pain, chills, dysuria, easy bruising or headache(s) Review of Systems Narrative: Generalized weakness Const: Denies: chills, body aches or change in appetite Eyes: Denies: change in vision or eye discharge ENMT: Denies: throat pain, dental pain or nasal discharge Card: Denies: chest pain or lightheadedness : Denies: dysuria Musc: Denies: neck pain or back pain Neuro: Denies: headache(s) Psych: Denies: depression Stoney/Lymph: Denies: easy bruising All/Imm: Denies: urticaria, tongue swelling or facial swelling PFSH ED PFSH: Medical History Arthritis BPH (benign prostatic hyperplasia) Chronic kidney disease Chronic myeloid leukemia, BCR/ABL-positive, in remission Congestive heart failure History of pleural effusion Hypertension Hypothyroidism Nonischemic cardiomyopathy Surgical History S/P shoulder surgery Family History Brother Myocardial infarct CAD (coronary artery disease) Father Stroke Other Diabetes Denies family history of Clotting disorder Dementia Hyperlipidemia Psychiatric illness Chronic kidney disease (CKD) Suicide Anesthesia complication Bleeding disorder Lung disease Cancer Hypertension Social History Smoking and tobacco status: former smoker Quit status (tobacco): has quit using tobacco Year quit tobacco: Quit 35 years ago Former quit date comment: Smoked for 20 years Alcohol intake: current Alcohol intake frequency: 0-2 Drinks per Day Alcohol type: wine Physical Exam Const: COMMON NORMALS: no acute distress, patient oriented x3, no limitations and alert HENMT: COMMON NORMALS: normocephalic HEAD & SCALP: normocephalic Eye: COMMON NORMALS: EOMs intact bilaterally Neck/C-Spine: COMMON NORMALS: full ROM and supple Chest: COMMONS NORMALS: normal inspection of the chest Resp: COMMON NORMALS: normal respiratory effort, No retractions, No use of accessory muscles and clear to auscultation bilaterally AUSCULTATION: clear to auscultation bilaterally Cardio: COMMON NORMALS: regular rate, regular rhythm and No murmurs present (Cardio) RATE: regular rate RHYTHM: regular rhythm GI: COMMON NORMALS: Normal to inspection, nondistended, normoactive bowel sounds present and non-tender : COMMON NORMALS: Yes no CVA tenderness BLADDER/KIDNEY EXAM: Yes no CVA tenderness Back/Pelvis: COMMON NORMALS: no CVA tenderness and no thoracic nor lumbar tenderness Extremity: GENERAL: Yes normal exam except as noted Neuro: COMMON NORMALS: patient oriented x3 and no focal motor deficits SENSORIUM/ORIENTATION: Yes alert Psych: COMMON NORMALS: mental status grossly normal and cooperative Course Consultations: Consultation #2: Dr. España who read patient's CT called and notes that he is got a large bilateral subdural hematoma with mixed attenuation that would suggest acute subdural hematoma.. There is significant symmetric mass effect on the lateral ventricles with narrowing. Patient will be transferred to a tertiary center. Time: 14:52 Consultation #3: Called [facility]. They will talk to their neurologist and call us back. Time: 14:56 Additional Consultation(s): 1515hrs; Case discussed with Dr. Chávez, ER physician at [facility]. She accepted patient in transfer. Patient will be sent by air, ER to ER. Vital Signs: Vital signs: Vital Signs Temperature 98.2 F 11/12/22 13:36 Pulse Rate 72 11/12/22 15:15 Respiratory Rate 18 11/12/22 15:15 Blood Pressure 131/71 11/12/22 15:15 Pulse Oximetry 97 11/12/22 15:15 Oxygen Delivery Me thod Room Air 11/12/22 15:15 MDM - Weakness Medical Decision Making Medical decision making: Patient was sent to the ER from his primary care provider's office with a 6 weeks history of generalized weakness, difficulty walking, recurrent falls and intermittent right-sided weakness. Here in the ER, patient is alert and oriented though he appears slightly weak. He has no focal neurologic deficit. NIH stroke scale is 0. CT brain revealed bilateral subdural hematoma. Patient and daughter decided that they want to be transferred to [facility]. Case discussed with Dr. Tao who accepted patient in transfer. He was sent by helicopter. Lab Data 11/12/22 14:20 11/12/22 14:20 Radiology Impressions Chest X-Ray 11/12/22 14:17 IMPRESSION: Small right subpulmonic effusion. Very small left pleural effusion. Laboratory Results WBC 5.41 10^3/uL (3.29-11.43) 11/12/22 14:20 RBC 4.29 10^6/uL (3.85-5.65) 11/12/22 14:20 Hgb 13.30 g/dL (11.27-16.99) 11/12/22 14:20 Hct 39.4 % (37-53) 11/12/22 14:20 MCV 91.8 fl (82-101) 11/12/22 14:20 MCH 31.0 pg (27-33) 11/12/22 14:20 MCHC 33.8 g/dL (30-55) 11/12/22 14:20 RDW 14.5 % (12.1-15.1) 11/12/22 14:20 Plt Count 172 10^3/cmm (157-399) 11/12/22 14:20 MPV 9.2 fL (7.4-10.4) 11/12/22 14:20 Neut % (Auto) 73.1 % 11/12/22 14:20 Lymph % (Auto) 16.5 % 11/12/22 14:20 Rankin % (Auto) 5.5 % 11/12/22 14:20 Eos % (Auto) 4.3 % 11/12/22 14:20 Baso % (Auto) 0.6 % 11/12/22 14:20 Neut # (Auto) 3.96 10^3/uL (1.8-7.7) 11/12/22 14:20 Lymph # (Auto) 0.9 10^3/uL (0.8-4.8) 11/12/22 14:20 Rankin # (Auto) 0.3 10^3/uL (0.2-0.9) 11/12/22 14:20 Eos # (Auto) 0.2 10^3/uL (0.0-0.8) 11/12/22 14:20 Baso # (Auto) 0.0 10^3/uL (0.0-0.1) 11/12/22 14:20 Nucleated RBC % (auto) 0 % 11/12/22 14:20 Nucleated RBCs # 0.0 /100WBC 11/12/22 14:20 Sodium 139 mmol/L (136-145) 11/12/22 14:20 Potassium 4.4 mmol/L (3.5-5.1) 11/12/22 14:20 Chloride 103 mmol/L (98-107) 11/12/22 14:20 Carbon Dioxide 26 mmol/L (22-29) 11/12/22 14:20 Anion Gap 14.4 (5-19) 11/12/22 14:20 BUN 14 mg/dL (8-23) 11/12/22 14:20 Creatinine 1.1 mg/dL (0.7-1.2) 11/12/22 14:20 GFR Calculation Not Reportable 11/12/22 14:20 Glucose 101 mg/dL (65-115) 11/12/22 14:20 Calculated Osmolality 289 mOsm/kg (285-295) 11/12/22 14:20 Calcium 9.1 mg/dL (8.5-10.5) 11/12/22 14:20 Total Bilirubin 0.5 mg/dL (0.15-1.2) 11/12/22 14:20 AST 17 U/L (0-40) 11/12/22 14:20 ALT 12 U/L (0-41) 11/12/22 14:20 Alkaline Phosphatase 85 U/L (40-130) 11/12/22 14:20 Total Protein 6.5 g/dL (6.6-8.7) L 11/12/22 14:20 Albumin 4.2 g/dL (3.5-5.2) 11/12/22 14:20 Globulin 2.3 g/dL (1.3-4.6) 11/12/22 14:20 TSH 3.54 uIU/mL (0.27-4.20) 11/12/22 14:20 Urine Color Straw (Yellow) 11/12/22 14:39 Urine Appearance Clear (CLEAR) 11/12/22 14:39 Urine pH 7 (5-7) 11/12/22 14:39 Ur Specific [place] 1.005 (1.005-1.030) 11/12/22 14:39 Urine Protein Neg (Negative) 11/12/22 14:39 Urine Glucose (UA) Norm (Normal) 11/12/22 14:39 Urine Ketones Negative (Negative) 11/12/22 14:39 Urine Blood Neg (Negative) 11/12/22 14:39 Urine Nitrate Negative (Negative) 11/12/22 14:39 Urine Bilirubin Neg (Negative) 11/12/22 14:39 Urine Urobilinogen Norm mg/dL (Negative) 11/12/22 14:39 Ur Leukocyte Esterase Negative (Negative) 11/12/22 14:39 All radiology interpretation(s) finalized by discharge Discharge Plan Discharge Patient Disposition: Xfer Short-Term Hosp Clinical Impression: Subacute subdural hematoma, Acute subdural hematoma Referrals: Azam Harris MD [Primary Care Provider] - Coding Level of Care Code ED Advertising Sales Representative for Olivia Martino
[2022-11-12 14:12] VITALS: BP 131/71; PULSE 77; RESP 18; O2SAT 94
--- NOTE | 2022-11-12 14:17 | XRR_ITS ---
PROCEDURE INFORMATION: Exam: XR Chest Exam date and time: 11/12/2022 2:30 PM Age: 72 years old Clinical indication: Other: Weakness TECHNIQUE: Imaging protocol: Radiologic exam of the chest. Views: 1 view. COMPARISON: CT chest w con* [id number] 10/07/2022 11:27 AM FINDINGS: Lungs: Unremarkable. No consolidation. Pleural spaces: Small right subpulmonic effusion. Very small left pleural effusion. Heart/Mediastinum: Unremarkable. No cardiomegaly. Bones/joints: Screw plate stabilizing left clavicular fracture. Nonacute mid right clavicular fracture. Other findings: Scattered granulomata as previously. XR/XR chest 1V portable [id number] IMPRESSION: Small right subpulmonic effusion. Very small left pleural effusion.
--- NOTE | 2022-11-12 14:17 | CT_ITS ---
WS: [id number] CT HEAD TECHNIQUE: Noncontrast CT of the head obtained from the skullbase to the vertex. CLINICAL INFORMATION: weakness COMPARISON: None. DLP: 1019.[address] scans at [facility] use at least one of these dose optimization techniques: automated e xposure control; mA and/or kV adjustment per patient size (includes targeted exams where dose is matc hed to clinical indication); or iterative reconstruction. FINDINGS: Large bilateral mixed attenuation subdural hematomas overlying both frontal lobes in a symmetric fash ion. Subdural hematomas consist of late subacute to chronic low attenuation and recent acute increase d attenuation blood products. RIGHT subdural hematoma measures 2.3 cm and LEFT subdural hematoma enzo ures 2.4 cm in maximal transverse dimension. Symmetric mass effect with compression of the frontal lobes bilaterally with symmetric narrowing of t he ventricular system. No hydrocephalus. Effacement of the third ventricle. Supratentorial mass effec t with slight effacement of the suprasellar cistern. Fourth ventricle remains patent. No visualized skull fractures. Mastoid air cells are well aerated. IMPRESSION: 1. Large bilateral subdural hematomas with mixed attenuation blood products. RIGHT frontal hematoma measures 2.3 cm and LEFT frontal hematoma measures 2.4 cm in maximal transverse dimension. 2. Significant symmetric mass effect on the lateral ventricles with narrowing. Effacement of the thi rd ventricle with early uncal herniation with partial effacement of the suprasellar cistern. 3. No hydrocephalus. 4. Fourth ventricle remains patent. 5. No visualized acute fractures.
--- NOTE | 2022-11-12 14:18 | ECG_ITS ---
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 Measurements Intervals [place] Rate: 80 P: 54 [place]: 155 QRS: -33 QRSD: 101 T: 76 QT: 344 QTc: 397 Interpretive Statements SINUS RHYTHM LEFT AXIS DEVIATION [QRS AXIS < -30] Compared to ECG 03/16/2017 10:23:19 Left-axis deviation now present Electronically Signed On 11-12-2022 15:03:13 CDT by Osei Rod M.[email or web address]
[2022-11-12 14:38] LABS: Basophils % 0.6 %; Eosinophils # 0.2 10^3/uL (0.0-0.8); Eosinophils % 4.3 %; Hematocrit 39.4 % (37-53); Lymphocytes # 0.9 10^3/uL (0.8-4.8); Lymphocytes % 16.5 %; Mean Corpuscular HGB Conc 33.8 g/dL (30-55); Mean Corpuscular Volume 91.8 fl (82-101); Mean Platelet Volume 9.2 fL (7.4-10.4); Monocytes # 0.3 10^3/uL (0.2-0.9); Monocytes % 5.5 %; Neutrophils # 3.96 10^3/uL (1.8-7.7); Neutrophils % 73.1 %; Nucleated Red Blood Cells % 0 %; Platelet Count 172 10^3/cmm (157-399); Red Blood Count 4.29 10^6/uL (3.85-5.65); Red Cell Distribution Width 14.5 % (12.1-15.1); White Blood Count 5.41 10^3/uL (3.29-11.43)
[2022-11-12 14:43] VITALS: BP 131/71; PULSE 76; RESP 18; O2SAT 95
[2022-11-12] MEDS: sodium chloride 0.9% 1,000 ML 999 ML IV (14:43)
[2022-11-12 14:48] LABS: Add Urine Microscopic? NO; Charge for UA Resulting for Rev
[2022-11-12 14:50] LABS: Bilirubin Urine Neg (Negative); Blood Urine Neg (Negative); Glucose Urine UA Norm (Normal); Ketones Urine Negative (Negative); Leukocyte Esterase Urine Negative (Negative); Nitrate Urine Negative (Negative); Protein Urine Neg (Negative); Specific Gravity, Urine 1.005 (1.005-1.030); Urine Appearance Clear (CLEAR); Urine Color Straw (Yellow); Urobilinogen Urine Norm (Negative); pH Urine 7 (5-7)
[2022-11-12 15:03] LABS: Alanine Aminotransferase 12 U/L (0-41); Albumin Level 4.2 g/dL (3.5-5.2); Alkaline Phosphatase 85 U/L (40-130); Anion Gap 14.4 (5-19); Aspartate Amino Transferase 17 U/L (0-40); Blood Urea Nitrogen 14 mg/dL (8-23); Calcium 9.1 mg/dL (8.5-10.5); Carbon Dioxide 26 mmol/L (22-29); Chloride 103 mmol/L (98-107); Globulin 2.3 g/dL (1.3-4.6); Glucose 101 mg/dL (65-115); Osmolality Calculated 289 mOsm/kg (285-295); Potassium 4.4 mmol/L (3.5-5.1); Sodium 139 mmol/L (136-145); Thyroid Stimulating Hormone 3.54 uIU/mL (0.27-4.20); Total Bilirubin 0.5 mg/dL (0.15-1.2); Total Protein 6.5 g/dL (6.6-8.7)
[2022-11-12 15:15] VITALS: BP 131/71; PULSE 72; RESP 18; O2SAT 97
== END 2022-11-12 16:24 | disposition short-term general hospital (02) ==
PROVIDERS: Emergency Provider Family Medicine; PCP Family Medicine
DX: I62.00 Nontraumatic subdural hemorrhage, unspecified (principal); I12.9 Hypertensive chronic kidney disease with stage 1 through stage 4 chronic kidney disease, or unspecified chronic kidney disease; N18.9 Chronic kidney disease, unspecified; Z85.6 Personal history of leukemia; Z87.891 Personal history of nicotine dependence
CPT/HCPCS: 70450; 71045; 80053; 81003; 84443; 85025; 93005; 99285; J7030

== ENCOUNTER 2022-12-10 16:29 | Oncology outpatient (recurring) (ONCR) | payer MEDICARE, MEDICAID, SELFPAY | END 2022-12-22 23:59 | disposition home or self-care (01) | LOC: ONCMED 16:30 | PROVIDERS: PCP Family Medicine; Visit Provider Internal Medicine Medical Oncology | DX: C92.12 Chronic myeloid leukemia, BCR/ABL-positive, in relapse (principal); I95.1 Orthostatic hypotension; I50.9 Heart failure, unspecified; R53.0 Neoplastic (malignant) related fatigue; Z79.899 Other long term (current) drug therapy; Z87.891 Personal history of nicotine dependence | CPT/HCPCS: 99214 ==

== ENCOUNTER → 2024-07-13 08:46 | Outpatient (BNVA) | payer MEDICARE, MEDICAID, SELFPAY | PROVIDERS: PCP Family Medicine; Visit Provider Nurse Practitioner Family | DX: L72.0 Epidermal cyst (principal); L82.1 Other seborrheic keratosis; L81.4 Other melanin hyperpigmentation; L57.8 Other skin changes due to chronic exposure to nonionizing radiation; D22.5 Melanocytic nevi of trunk; Z80.8 Family history of malignant neoplasm of other organs or systems; Z08 Encounter for follow-up examination after completed treatment for malignant neoplasm; Z85.6 Personal history of leukemia; L82.0 Inflamed seborrheic keratosis; Z78.9 Other specified health status; R20.8 Other disturbances of skin sensation; L53.8 Other specified erythematous conditions; L57.0 Actinic keratosis; D48.5 Neoplasm of uncertain behavior of skin | CPT/HCPCS: 11102; 17000; 17110; 99203 ==

== ENCOUNTER → 2024-10-31 15:41 | Outpatient (BNVA) | payer MEDICARE, MEDICAID, SELFPAY | PROVIDERS: PCP Family Medicine; Visit Provider Nurse Practitioner Family | DX: L72.0 Epidermal cyst (principal); L82.1 Other seborrheic keratosis; L81.4 Other melanin hyperpigmentation; L57.8 Other skin changes due to chronic exposure to nonionizing radiation; D22.5 Melanocytic nevi of trunk; Z80.8 Family history of malignant neoplasm of other organs or systems; Z85.6 Personal history of leukemia; Z08 Encounter for follow-up examination after completed treatment for malignant neoplasm; Z85.828 Personal history of other malignant neoplasm of skin; L57.0 Actinic keratosis | CPT/HCPCS: 17000; 99213 ==